=== PATIENT | male | born 1950 | race Caucasian/White ===

== ENCOUNTER → 2016-10-20 | Outpatient (CLI) | payer OTHER ==
--- NOTE | 2016-10-20 15:29 | US ---
Testicular Sonography with Color and Spectral Doppler Clinical History: 66-year-old male with left scrotal pain approximately three weeks ago, although the patient has not had any pain in six days, and believes that he may have a left-sided varicocele. ICD-10 Diagnostic Codes: I86.1 and N50.82. Technique: A linear 12 MHz transducer was used to sonographically evaluate each hemiscrotum. Color Do ppler and spectral Doppler are used. Comparison Study: None. Findings: Right Hemiscrotum: The testis is normal in size, shape, and position, and is homogeneous in echotextu re. Intratesticular vascular flow is documented, with both arterial and venous waveforms demonstrated . The resistive index is 0.59. There is no hydrocele or varicocele. The epididymis appears normal. Left Hemiscrotum: As on the contralateral side, the testis appears normal, measuring 4.7 x 1.8 x 3.1 cm. Intratesticular vascular flow is documented, with a resistive index of 0.67. There is no hydrocel e. The epididymis is normal. A left-sided varicocele is observed, increasing in size with Valsalva ma neuver, with vessels measuring up to 4.5-5.3 mm in diameter. Impression: 1. Normal sonographic appearance of each testis. 2. Left-sided varicocele.
== END ==
LOC: FIMAGING 12:20
PROVIDERS: ATTEND Physician Assistant Medical
DX: I86.1 Scrotal varices (principal)

== ENCOUNTER 2017-01-31 07:21 | Emergency (ER) | payer OTHER ==
[2017-01-31] MEDS ORDERED: ONDANSETRON 4 MG/2 ML VIAL IVP ONE (07:37)
[2017-01-31] MEDS ORDERED: NS 1,000 ML IV ONE (07:37)
--- NOTE | 2017-01-31 08:11 | EDPHY ---
H & P Time Seen by Provider: 01/31/17 07:54 HPI/ROS: CHIEF COMPLAINT: Vomiting and diarrhea HISTORY OF PRESENT ILLNESS: 66-year-old male presents with vomiting and diarrhea. Onset of nausea at 0100 this morning. Followed by multiple episodes of vomiting and 2 episodes of diarrhea. No associated abdominal pain, fever or other symptoms. REVIEW OF SYSTEMS: Constitutional: No fever, no chills Eyes: No visual changes ENT: No sore throat Respiratory: No cough, no shortness of breath Cardiac: No chest pain Genitourinary: no dysuria Musculoskeletal: No leg pain or swelling Skin: No rash Neurological: No headache, no weakness Psychiatric: No depression Past Medical/Surgical History: Molina's esophagus Social History: Smoking Status: Never smoked Physical Exam: General Appearance: Alert, pleasant Eyes: Pupils equal and round, no conjunctival pallor ENT, Mouth: Mucous membranes moist Neck: Normal inspection Respiratory: Lungs are clear to auscultation Cardiovascular: Regular rate and rhythm Gastrointestinal: Abdomen is soft and nontender Neurological: A&O, nonfocal exam Skin: Warm and dry, no rash Extremities: Nontender, no pedal edema Psychiatric: Mood and affect normal Constitutional: Initial Vital Signs Temperature (C) 36.4 C 01/31/17 07:24 Heart Rate 66 01/31/17 07:24 Respiratory Rate 20 01/31/17 07:24 Blood Pressure 151/89 H 01/31/17 07:24 O2 Sat (%) 99 01/31/17 07:24 O2 Delivery Mode Room Air Allergies/Adverse Reactions: IV CT contrast Allergy (Intermediate, Uncoded 01/31/17 07:22) Hives Home Medications: Medication Instructions Recorded Ondansetron Odt [Zofran Odt 4 mg 4 mg PO Q4 PRN #6 tab 01/31/17 (*)] Prevacid 01/31/17 Medical Decision Making ED Course/Re-evaluation: IV normal saline 1 L and Zofran 4 mg IV given. The patient feels much better after Zofran. Tolerated oral fluids well. Abdominal exam remains benign. Differential Diagnosis: Differential diagnosis includes though it is not limited to appendicitis, cholecystitis, diverticulitis, pyelonephritis, bowel perforation, small bowel obstruction. - Data Points Medications Given: Discontinued Medications Sodium Chloride (Ns) 1,000 mls @ 0 mls/hr IV ONCE ONE PRN Reason: Wide Open Stop: 01/31/17 07:38 Last Admin: 01/31/17 07:55 Dose: 1,000 mls Ondansetron HCl (Zofran) 4 mg IVP EDNOW ONE Stop: 01/31/17 07:38 Last Admin: 01/31/17 07:55 Dose: 4 mg Departure - Departure Disposition: Home, Routine, Self-Care Clinical Impression: Acute gastroenteritis Condition: Good Instructions: Gastroenteritis (ED) Referrals: Mauricio Larson MD [Primary Care Provider] - As per Instructions Prescriptions: Ondansetron Odt [Zofran Odt 4 mg (*)] 4 mg PO Q4 PRN #6 tab PRN Reason: Nausea
[2017-01-31 09:30] VITALS: BP 123/85; PULSE 60; RESP 18; TEMP 98.1; O2SAT 98
== END 2017-01-31 09:29 | disposition home or self-care (01) ==
DX: K52.9 Noninfective gastroenteritis and colitis, unspecified (principal)
CPT/HCPCS: 96361; 96374; 99284; J2405

== ENCOUNTER 2017-05-16 09:51 | Emergency (ER) | payer OTHER ==
[2017-05-16 09:57] VITALS: RESP 18
--- NOTE | 2017-05-16 10:13 | CPEKG ---
Heart Rate: 57 RR Interval: 1053 P-R Interval: 164 QRSD Interval: 88 QT Interval: 420 QTC Interval: 409 P Gorham: 72 QRS [place]ham: 76 T Wave Gorham: 55 EKG Severity - NORMAL ECG - EKG Impression: SINUS RHYTHM Electronically Signed By: Johanne Randhawa 16-May-2017 16:53:23
[2017-05-16 11:04] LABS: ANION GAP 13 mEq/L (8-16); CALCIUM 10.1 mg/dL (8.5-10.4); CARBON DIOXIDE 25 mEq/l (22-31); CHLORIDE 103 mEq/L (97-110); GLOMERULAR FILTRATION RATE > 60; GLUCOSE 79 mg/dL (70-100); POTASSIUM 4.2 mEq/L (3.5-5.2); SODIUM 141 mEq/L (134-144)
[2017-05-16 11:05] LABS: % IMMATURE GRANULYOCYTES 0.2 % (0.0-1.1); ABSOLUTE IMMATURE GRANULOCYTES 0.01 10^3/uL (0.00-0.10); ADD DIFF? NO; ADD MORPH? NO; ADD SCAN? NO; ATYPICAL LYMPHOCYTE FLAG 10 (0-99); FRAGMENT RBC FLAG 0 (0-99); HEMATOCRIT 45.1 % (40.0-51.0); HEMOGLOBIN 15.5 g/dL (13.7-17.5); LEFT SHIFT FLG 0 (0-99); LIPEMIA HEMOLYSIS FLAG 90 (0-99); MEAN CELL HEMOGLOBIN 31.2 pg (27.9-34.1); MEAN CELL HEMOGLOBIN CONCENTR. 34.4 g/dL (32.4-36.7); MEAN CELL VOLUME 90.7 fL (81.5-99.8); MEAN PLATELET VOLUME 9.5 fL (8.7-11.7); PLATELET CLUMPS FLAG 0 (0-99); PLATELET COUNT 205 10^3/uL (150-400); RED BLOOD CELL COUNT 4.97 10^6/uL (4.40-6.38); RED CELL DISTRIBUTION WIDTH 13.3 % (11.5-15.2)
[2017-05-16 11:15] LABS: TROPONIN I < 0.012 ng/mL (0-0.034)
[2017-05-16 11:22] LABS: INR 0.92 (0.83-1.16); PROTIME(PATIENT) 12.3 SEC (12.0-15.0)
--- NOTE | 2017-05-16 12:01 | EDPHY ---
H & P Stated Complaint: 2 times in last month/awakened with sob/dizzyness Time Seen by Provider: 05/16/17 12:00 HPI/ROS: CHIEF COMPLAINT: Dizziness, shortness of breath HISTORY OF PRESENT ILLNESS: This patient is a 67 year old male arriving at the request of his primary care provider for shortness of breath and dizziness onset last night. One month ago, he woke up in the middle of the night as he generally does and realized he was dizzy and could not focus, with his eyes "bobbling". He had an odd feeling of impending doom. He was more comfortable moving around than staying still. Last night, he had a similar episode but without any vision difficulties. He usually goes to sleep by counting his breaths, and realized his breathing was twice its usual rate. Often wakes up in the night, reads for a while, goes back to sleep. Last night no dizziness. He denies chest pain, nausea, or recent illness. No history of panic attacks. He is generally healthy and does cardio workouts often with no adverse symptoms. REVIEW OF SYSTEMS: A ten point review of systems was performed and is negative with the exception of the items mentioned in the HPI. He also reports symptoms of allergies--skin rashes--for which he uses creams. Past medical history: Marcelino's esophagus (Prevacid) Past surgical history: Noncontributory Family history: Noncontributory Social history: Nonsmoker. Alcohol use in moderation. Lives in [place]. . Marijuana use. Retired. 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 General Appearance: Alert. Vital signs reviewed. Eyes: Pupils equal and round, no conjunctival injection, no discharge. Anicteric. ENT, Mouth: Mucous membranes are moist, no oropharyngeal erythema or edema. Neck: No lymphadenopathy, supple. Respiratory: Lungs are clear to auscultation; no wheezes, rales, or rhonchi. Cardiovascular: Regular rate and rhythm; no murmur, rub, or gallop. Gastrointestinal: Abdomen is soft and nontender, no masses or organomegaly, bowel sounds normal. Skin: Warm and dry, no rashes on exposed skin, normal color. Back: Nontender to palpation over the thoracolumbar spine. No CVAT. Extremities: No lower extremity edema, no calf tenderness or swelling. Neurological: Alert and oriented. Moving all four extremities easily and equally. PERRL. EOMI. Tongue midline. Facial expressions symmetric. Psychiatric: Normal affect. - Personal History Current Tetanus/Diphtheria Vaccine: Unsure Tetanus Vaccine Date: < 10 YEARS - Medical/Surgical History Hx Asthma: No Hx Chronic Respiratory Disease: No Hx Diabetes: No Hx Cardiac Disease: No Hx Renal Disease: No Hx Cirrhosis: No Hx Alcoholism: No Hx HIV/AIDS: No Hx Splenectomy or Spleen Trauma: No Other PMH: MARCELINO ESOPHAGUS, - Social History Smoking Status: Never smoked Constitutional: Initial Vital Signs Temperature (C) 36.5 C 05/16/17 09:54 Heart Rate 66 05/16/17 09:54 Respiratory Rate 18 05/16/17 09:54 Blood Pressure 125/76 H 05/16/17 09:54 O2 Sat (%) 97 05/16/17 09:54 O2 Delivery Mode Room Air Allergies/Adverse Reactions: IV CT contrast Allergy (Intermediate, Uncoded 05/16/17 09:52) Hives Home Medications: Medication Instructions Recorded Prevacid 05/16/17 Medical Decision Making - Diagnostics EKG Interpretation: The 12 lead EKG was interpreted by myself. See hard copy and/or "tracemaster" electronic copy for interpretation. ED Course/Re-evaluation: 67 year old male presents at the request of his primary care provider for evaluation of two episodes of dizziness possible fast heart rate, SOB, and a sense of impending doom. Episodes resolved spontaneously. Physical exam unremarkable. Plan for labs including CBC, BMP, Troponin, D-Dimer. Labs unremarkable. Wells score zero, normal d-dimer, PE highly unlikely. Nothing to suggest infection (such as pneumonia) or pericarditis. Normal EKG. First troponin normal, no current chest pain, over 12 hours since episode occurred. No chest trauma. I suspect, and patient agrees, that these episodes are anxiety/panic attacks. I do not recommend any further evaluation at this time. Plan to discharge in good condition. Follow up and return precautions discussed. The patient is comfortable with this plan. - Data Points Laboratory Results: Laboratory Results 05/16/17 10:21 05/16/17 10:21 Departure - Departure Disposition: Home, Routine, Self-Care Clinical Impression: Panic attack Condition: Good Instructions: Panic Attack (ED) Additional Instructions: 1. Attached are instructions regarding panic attacks. We are not sure that this is what happened, but you may find the information useful. 2. Continue to follow up with your primary care provider for evaluation of your symptoms. 3. Return to the Emergency Department for chest pain, shortness of breath, severe headache, weakness or numbness, recurring episodes of dizziness, fever, vomiting, or other worsening of condition. Referrals: Mauricio Larson MD [Primary Care Provider] - As per Instructions Report Scribed for: Johanne Randhawa Report Scribed by: Clarisa Bolaños Date of Report: 05/16/17 Time of Report: 12:11 Physician Review and Approval Statement: 05/17/17 12:40 Portions of this note were transcribed by the medical records custodian. I, Dr. Johanne Randhawa, personally performed the history, physical exam, and medical decision- making; and confirmed the accuracy of the information in the transcribed note.
[2017-05-16 12:42] VITALS: BP 153/93; PULSE 49; TEMP 98.4; O2SAT 96
== END 2017-05-16 12:30 | disposition home or self-care (01) ==
DX: F41.0 Panic disorder [episodic paroxysmal anxiety] (principal)